=== PATIENT | female | born 1945 | race Caucasian/White ===

== ENCOUNTER → 2016-12-05 | Outpatient (CLI) | payer MEDICARE, OTHER | LOC: RAD 12:59 | PROVIDERS: ATTEND Pain Medicine Interventional Pain Medicine | DX: M25.552 Pain in left hip (principal); M16.0 Bilateral primary osteoarthritis of hip ==

== ENCOUNTER → 2017-01-04 | Outpatient (CLI) | payer MEDICARE, OTHER | LOC: RAD 11:43 | PROVIDERS: ATTEND Physician Assistant | DX: M25.552 Pain in left hip (principal) ==

== ENCOUNTER → 2017-09-16 | Outpatient (CLI) | payer MEDICARE, OTHER ==
[2017-09-16 13:55] LABS: APPEARANCE,URINE CLEAR; BILIRUBIN,URINE NEGATIVE (NEGATIVE); GLUCOSE, URINE NEGATIVE (NEGATIVE); KETONES,URINE NEGATIVE (NEGATIVE); LEUKOCYTE ESTERASE,URINE NEGATIVE (NEGATIVE); NITRITE,URINE NEGATIVE (NEGATIVE); PROTEIN,URINE NEGATIVE (NEGATIVE); URINE SPECIFIC GRAVITY 1.003; UROBILINOGEN,URINE NEGATIVE mg/dL (<2.0)
[2017-09-16 14:05] LABS: ABSOLUTE BASOPHILS # (AUTO) 0.1 10^3/uL (0.0-0.2); ABSOLUTE EOSINOPHILS # (AUTO) 0.4 10^3/uL (0.0-0.6); ABSOLUTE LYMPHOCYTES (AUTO) 2.6 10^3/uL (0.5-4.7); ABSOLUTE MONOCYTES (AUTO) 0.4 10^3/uL (0.1-1.4); ABSOLUTE NEUT (AUTO) 4.4 10^3/uL (1.7-8.2); BASOPHILS % (AUTO) 0.8 % (0-2); EOSINOPHILS % (AUTO) 4.8 % (0-6); HEMATOCRIT 43.5 % (36.0-47.0); HEMOGLOBIN 14.7 g/dL (12.0-15.5); HGB HCT DIFFERENCE 0.6; LYMPHOCYTES % (AUTO) 32.8 % (13-45); MEAN CORPUSCULAR HGB CONC 33.9 g/dL (32.0-36.0); MEAN CORPUSCULAR VOLUME 89 fl (80-97); MONOCYTES % (AUTO) 5.1 % (3-13); RED BLOOD COUNT 4.91 10^6/uL (3.72-5.28); RED CELL DISTRIBUTION WIDTH 14.1 % (11.5-14.0); SEGMENTED NEUTROPHILS % (AUTO) 56.5 % (42-78); WHITE BLOOD COUNT 7.8 10^3/uL (4.0-10.5)
[2017-09-16 14:07] LABS: PROTHROMBIN TIME 12.1 SEC (11.4-15.4)
[2017-09-16 14:08] LABS: PARTIAL THROMBOPLASTIN TIME 32.6 SEC (23.5-35.8)
== END ==
LOC: LAB 13:01
PROVIDERS: ATTEND Pain Medicine Interventional Pain Medicine
DX: Z79.01 Long term (current) use of anticoagulants (principal); G89.4 Chronic pain syndrome
CPT/HCPCS: 36415; 81001; 85025; 85610; 85730

== ENCOUNTER → 2017-10-30 | Outpatient (CLI) | payer MEDICARE, OTHER ==
--- NOTE | 2017-10-30 16:44 | RADIOLOGY REPORT (SQ) ---
EXAM DESCRIPTION: MRI LUMBAR SPINE COMBO COMPLETED DATE/TIME: 10/30/2017 3:56 pm REASON FOR STUDY: LUMBOSARCAL RADICULOPATHY (M54.17) M54.17 RADICULOPATHY, LUMBOSACRAL REGION COMPARISON: None. TECHNIQUE: Sagittal and Axial imaging includes T1, T1 post gadolinium, T2, STIR and gradient echo se quences. Coronal T2/HASTE imaging. CONTRAST TYPE AND DOSE: 15 mL Multihance. RENAL FUNCTION: GFR 50 LIMITATIONS: Susceptibility artifact. FINDINGS: VISUALIZED UPPER ABDOMEN: Limited evaluation. No acute or suspicious findings suggested. SEGMENTATION: No transitional anatomy. The lowest well-developed disc space is labeled L5-S1. ALIGNMENT: Slight anterolisthesis of L2 relative to L1. VERTEBRAE: Intact. No fractures. BONE MARROW: Normal. No marrow replacement or reactive changes. DISC SIGNAL: Desiccation multiple levels. POSTERIOR ELEMENTS: See individual levels below. HARDWARE: Posterior fusion L2-3, L3- 4 and L4-5. CORD AND CONUS: Normal in size and signal intensity. Conus at the appropriate level. SOFT TISSUES: No aortic aneurysm seen. No bulky retroperitoneal adenopathy or mass. No paraspinal mas s or fluid. L1-L2: Mild spinal stenosis due to disc osteophyte complex. Mild neural foraminal narrowing bilatera lly. L2-L3: Prior posterior decompression. The canal is widely patent. L3-L4: Posterior decompression. The canal is widely patent. L4-L5: Posterior decompression. The canal is widely patent. L5-S1: Disc bulge and facet arthropathy. Mild right neural foraminal narrowing. LOWER THORACIC: Incompletely imaged. No stenosis seen. SACRUM: Visualized upper sacrum intact. ENHANCEMENT: No abnormal enhancement. OTHER: No other significant findings. IMPRESSION: Mild spinal stenosis and malalignment L1-2 status post posterior decompression and fusio n at L2-3 through L4-5. TECHNICAL DOCUMENTATION: JOB ID: [id number] [employer]- All Rights Reserved
== END ==
LOC: RAD 14:15
PROVIDERS: ATTEND Pain Medicine Interventional Pain Medicine
DX: M54.17 Radiculopathy, lumbosacral region (principal)
CPT/HCPCS: 82565; 72158; A9577

== ENCOUNTER 2018-01-01 05:54 | Day surgery (SDC) | payer MEDICARE, OTHER ==
[~2018-01-01 05:54] MED LIST: DISPOSABLE IT PRN; MORPHINE SULFATE INJ PF 10 MG/10 ML SDV IT PRN; MORPHINE SULFATE IT PRN
[2018-01-01] MEDS ORDERED: MORPHINE SULFATE INJ PF 10 MG/10 ML SDV ONE (07:02)
--- NOTE | 2018-01-01 10:39 | RADIOLOGY REPORT (SQ) ---
EXAM DESCRIPTION: INJ L/S SPINE EPI/SUB COMPLETED DATE/TIME: 01/01/2018 8:37 am REASON FOR STUDY: G89.4 CHRONIC INTRACTABLE PAIN G89.4 CHRONIC PAIN SYNDROME COMPARISON: None. FLUOROSCOPY TIME: 0.2 minutes 2 images saved to PACS. TECHNIQUE: Intra-operative images acquired during surgical procedure to evaluate progress. NUMBER OF IMAGES: 2 LIMITATIONS: None. FINDINGS: Selected images from instrumentation in the lumbar spine. There is a spinal needle overly ing L2- 3 from a posterior approach. IMPRESSION: IMAGE(S) OBTAINED DURING PROCEDURE. COMMENT: Quality ID 145: Final reports for procedures using fluoroscopy that document radiation exp osure indices, or exposure time and number of fluorographic images (if radiation exposure indices are not available) Please consult full operative report of the attending physician for description of the procedure. TECHNICAL DOCUMENTATION: JOB ID: [id number] [employer]- All Rights Reserved
[2018-01-01 16:23] VITALS: BP 114/68
--- NOTE | 2018-01-02 15:03 | OPERATIVE REPORT E ---
Operative Report NAME: SOUTH HAMMER : 1945 AGE: 72Y DATE OF SURGERY: 01/01/2018 ROOM: 604 PRE-PROCEDURE DIAGNOSIS: Chronic intractable pain. POST-PROCEDURE DIAGNOSIS: Chronic intractable pain. PROCEDURE PERFORMED: Intrathecal morphine injection. PRIMARY PROCEDURALIST: TRISH ROBERTSON M.D. ASSISTANTS: None. ANESTHESIA: Local. SPECIMENS REMOVED: None. OPERATIVE FINDINGS: Successful intrathecal injection of morphine sulfate solution at 0.25 mg. COMPLICATIONS: None. ESTIMATED BLOOD LOSS: None. INDICATIONS: The patient is a 72-year-old female with chronic intractable pain. This is multifactorial in nature due to post-laminectomy pain syndrome of the lower back as well as complex regional pain syndrome of the right lower extremity and chronic osteoarthritic pain. The patient has been intolerant to oral opioids secondary to side effects, including substantial sweating, though they are very beneficial for pain. The patient failed a trial of spinal cord stimulation. The patient was decided to be a trial for intrathecal morphine to determine if intrathecal pump therapy may be reasonable methodology of treating pain. PROCEDURE PERFORMED: All risks and benefits of procedure were discussed in detail including but not limited to bleeding, bruising, infection, including meningitis, injury to nerves, arteries, veins, failure to ameliorate pain by reaction to intrathecal pain medication extended, potential for respiratory depression, paralysis, loss of bowel or bladder function, and even . The patient expressed understanding and agreed to proceed. The patient was taken to the cardiac catheterization lab and placed in prone position on the procedure table. The patient was prepped and draped in sterile fashion using chlorhexidine gluconate solution and a standard fenestrated drape. The L3-4 interspace was appreciated under AP fluoroscopy. The skin overlying the intended injection site was anesthetized with 1% lidocaine with 1:100,000 epinephrine using a 25-gauge needle. Subsequently, a 25-gauge Quincke spinal needle was advanced under intermittent AP and lateral fluoroscopic guidance to the midline intralaminar space between L3-4. After slight loss was felt, the Stylette was removed. Aspiration was positive for CSF. Total of 0.25 mg of morphine sulfate was injected into the approximately 1 mL of cerebrospinal fluid that was withdrawn. This was reinjected through the Marta needle without difficulty. The needle was removed. The skin cleansed and bandages applied. The patient was accompanied to the recovery unit in stable condition. She will remain supine and laying flat for the next hour after which she will be monitored for the next 8 hours with continuous pulse oximetry and encouraged to ambulate to see side effects of medication and any improvement in pain. DICTATING PHYSICIAN: TRISH ROBERTSON M.D. [id number] PHY#: [id number] ID: [id number] JOB#: [id number] ACCT: [id number] cc:TRISH ROBERTSON M.D. >
== END 2018-01-01 18:21 | disposition home or self-care (01) ==
LOC: CCL 05:54 → ICU 18:18 → CCL 18:21
PROVIDERS: ATTEND Pain Medicine Interventional Pain Medicine
PROC: 3E0R3NZ Introduction of Analgesics, Hypnotics, Sedatives into Spinal Canal, Percutaneous Approach (ICD-10-PCS; principal; 2018-01-01)
DX: G89.4 Chronic pain syndrome (principal); I10 Essential (primary) hypertension; E07.9 Disorder of thyroid, unspecified; M54.17 Radiculopathy, lumbosacral region; M05.59 Rheumatoid polyneuropathy with rheumatoid arthritis of multiple sites; F45.42 Pain disorder with related psychological factors; F32.9 Major depressive disorder, single episode, unspecified; M60.89 Other myositis, multiple sites; M25.571 Pain in right ankle and joints of right foot; M25.572 Pain in left ankle and joints of left foot; G47.01 Insomnia due to medical condition; M25.551 Pain in right hip; F32.89 Other specified depressive episodes; M25.552 Pain in left hip; Z79.899 Other long term (current) drug therapy; Z79.891 Long term (current) use of opiate analgesic
CPT/HCPCS: 62322; 77001; J2274; J3490

== ENCOUNTER → 2018-01-10 | Outpatient (CLI) | payer MEDICARE, OTHER ==
[2018-01-10 14:01] LABS: ABSOLUTE BASOPHILS # (AUTO) 0.1 10^3/uL (0.0-0.2); ABSOLUTE EOSINOPHILS # (AUTO) 0.2 10^3/uL (0.0-0.6); ABSOLUTE LYMPHOCYTES (AUTO) 2.7 10^3/uL (0.5-4.7); ABSOLUTE MONOCYTES (AUTO) 0.5 10^3/uL (0.1-1.4); ABSOLUTE NEUT (AUTO) 6.1 10^3/uL (1.7-8.2); BASOPHILS % (AUTO) 0.9 % (0-2); EOSINOPHILS % (AUTO) 1.6 % (0-6); HEMATOCRIT 41.3 % (36.0-47.0); HEMOGLOBIN 14.4 g/dL (12.0-15.5); LYMPHOCYTES % (AUTO) 27.9 % (13-45); MEAN CORPUSCULAR HEMOGLOBIN 30.7 pg (27.0-33.4); MEAN CORPUSCULAR HGB CONC 34.8 g/dL (32.0-36.0); MEAN CORPUSCULAR VOLUME 88 fl (80-97); MONOCYTES % (AUTO) 5.2 % (3-13); PLATELET COUNT 225 10^3/uL (150-450); RED BLOOD COUNT 4.69 10^6/uL (3.72-5.28); RED CELL DISTRIBUTION WIDTH 14.6 % (11.5-14.0); SEGMENTED NEUTROPHILS % (AUTO) 64.4 % (42-78); TOTAL CELLS COUNTED % (AUTO) 100 %; WHITE BLOOD COUNT 9.5 10^3/uL (4.0-10.5)
[2018-01-10 14:11] LABS: APPEARANCE,URINE CLEAR; BILIRUBIN,URINE NEGATIVE (NEGATIVE); COLOR,URINE STRAW; GLUCOSE, URINE NEGATIVE (NEGATIVE); KETONES,URINE NEGATIVE (NEGATIVE); LEUKOCYTE ESTERASE,URINE NEGATIVE (NEGATIVE); NITRITE,URINE NEGATIVE (NEGATIVE); PROTEIN,URINE NEGATIVE (NEGATIVE); URINE SPECIFIC GRAVITY 1.004; UROBILINOGEN,URINE NEGATIVE mg/dL (<2.0)
[2018-01-10 14:12] LABS: INTERNATIONAL RATION (INR) 0.82
[2018-01-10 14:13] LABS: PARTIAL THROMBOPLASTIN TIME 27.5 SEC (23.5-35.8)
== END ==
LOC: LAB 13:35
PROVIDERS: ATTEND Pain Medicine Interventional Pain Medicine
DX: Z01.812 Encounter for preprocedural laboratory examination (principal); R23.3 Spontaneous ecchymoses
CPT/HCPCS: 36415; 81001; 85025; 85610; 85730

== ENCOUNTER 2018-01-14 10:21 | Day surgery (SDC) | payer MEDICARE, OTHER ==
--- NOTE | 2018-01-13 13:48 | EKG REPORT ---
SEVERITY:- BORDERLINE ECG - SINUS RHYTHM LEFT AXIS DEVIATION BORDERLINE R WAVE PROGRESSION, ANTERIOR LEADS : Confirmed by: Isaias Saunders MD 13-Jan-2018 13:47:30
[~2018-01-14 10:21] MED LIST changes: +CEFAZOLIN 1 GM/D5W RTU 1 GM/50 ML RTUPB IV PRN; -DISPOSABLE IT PRN; +LACTATED RINGERS 1000 ML IV PRN; +LIDOCAINE 0.5% INJ-PF (5 MG/ML) 50 ML SDV SUBCUT PRN; -MORPHINE SULFATE INJ PF 10 MG/10 ML SDV IT PRN; -MORPHINE SULFATE IT PRN
[2018-01-14] MEDS ORDERED: LIDOCAINE 1% INJ-PF (10 MG/ML) 30 ML SDV ONE ×2 (11:28→13:05)
[2018-01-14] MEDS ORDERED: SODIUM BICARBONATE 8.4% INJ 50 MEQ/50 ML DISP.SYRIN ONE (11:28)
[2018-01-14] MEDS ORDERED: BUPIVACAINE HCL 0.5%-EPI 1:200000 INJ/PF 30 ML VIAL ONE ×2 (11:28→13:05)
[2018-01-14] MEDS ORDERED: MIDAZOLAM 2 MG/2 ML INJ ONE (12:17)
[2018-01-14] MEDS ORDERED: ONDANSETRON HCL INJ/PF 4 MG/2 ML SDV ONE (12:17)
[2018-01-14] MEDS ORDERED: FENTANYL CITRATE INJ/PF 100 MCG/2 ML AMPUL ONE (12:17)
[2018-01-14] MEDS ORDERED: PROPOFOL INJ 200 MG/20 ML VIAL IV ONE (12:17)
[2018-01-14] MEDS ORDERED: MEPERIDINE HCL/PF INJ 25 MG/1 ML DISP.SYRIN IV PRN (13:03)
[2018-01-14] MEDS ORDERED: DIPHENHYDRAMINE HCL 50 MG/ML VIAL IV PRN (13:03)
[2018-01-14] MEDS ORDERED: MORPHINE SULFATE 10 MG/ML INJ IV PRN (13:03)
[2018-01-14] MEDS ORDERED: PROMETHAZINE HCL INJ 25 MG/1 ML VIAL IV PRN (13:03)
[2018-01-14] MEDS ORDERED: FENTANYL CITRATE INJ/PF 100 MCG/2 ML AMPUL IV PRN ×3 (13:03)
[2018-01-14] MEDS ORDERED: ACETAMINOPHEN 325 MG TABLET PO PRN (15:42)
--- NOTE | 2018-01-14 16:19 | RADIOLOGY REPORT (SQ) ---
EXAM DESCRIPTION: THORACOLUMBAR SPINE AP/LAT; GUIDANCE FLUOROSCOPIC; NO CHG FLUORO COMPLETED DATE/TIME: 01/14/2018 3:05 pm; 01/01/2018 12:33 pm REASON FOR STUDY: MORPHINE PUMP PLMCT ASST WITH FLUORO IN OR; CHRONIC PAIN SYNDROME G89.4 CHRONIC P AIN SYNDROME COMPARISON: Lumbar spine image guided procedure 01/01/2018 FLUOROSCOPY TIME: 2 minutes 21 images images saved to PACS. TECHNIQUE: Intra-operative images acquired during surgical procedure to evaluate progress. NUMBER OF IMAGES: 21 images LIMITATIONS: None. FINDINGS: Intra procedural imaging and fluoro. Please see the operative report for further details. IMPRESSION: Intra procedural imaging and fluoro COMMENT: Quality ID 145: Final reports for procedures using fluoroscopy that document radiation exp osure indices, or exposure time and number of fluorographic images (if radiation exposure indices are not available) Please consult full operative report of the attending physician for description of the procedure. TECHNICAL DOCUMENTATION: JOB ID: [id number] [employer]- All Rights Reserved Reading location - IP/workstation name: [email or web address]
--- NOTE | 2018-01-14 16:19 | RADIOLOGY REPORT (SQ) ---
EXAM DESCRIPTION: THORACOLUMBAR SPINE AP/LAT; GUIDANCE FLUOROSCOPIC; NO CHG FLUORO COMPLETED DATE/TIME: 01/14/2018 3:05 pm; 01/01/2018 12:33 pm REASON FOR STUDY: MORPHINE PUMP PLMCT ASST WITH FLUORO IN OR; CHRONIC PAIN SYNDROME G89.4 CHRONIC P AIN SYNDROME COMPARISON: Lumbar spine image guided procedure 01/01/2018 FLUOROSCOPY TIME: 2 minutes 21 images images saved to PACS. TECHNIQUE: Intra-operative images acquired during surgical procedure to evaluate progress. NUMBER OF IMAGES: 21 images LIMITATIONS: None. FINDINGS: Intra procedural imaging and fluoro. Please see the operative report for further details. IMPRESSION: Intra procedural imaging and fluoro COMMENT: Quality ID 145: Final reports for procedures using fluoroscopy that document radiation exp osure indices, or exposure time and number of fluorographic images (if radiation exposure indices are not available) Please consult full operative report of the attending physician for description of the procedure. TECHNICAL DOCUMENTATION: JOB ID: [id number] [employer]- All Rights Reserved Reading location - IP/workstation name: [email or web address]
[2018-01-14] MEDS: HYDROMORPHONE HCL 2 MG TABLET PO PRN (17:15)
[2018-01-14] MEDS: DIPHENHYDRAMINE HCL 25 MG CAPSULE PO PRN ×3 (19:34→21:52)
[2018-01-14] MEDS: PROMETHAZINE HCL INJ 25 MG/1 ML VIAL IV PRN ×2 (19:35→20:02)
[2018-01-14] MEDS: CEFAZOLIN 1 GM/D5W RTU 1 GM/50 ML RTUPB IV SCH (21:51)
[2018-01-14] MEDS: ALPRAZOLAM 0.5 MG TABLET PO SCH (21:53)
[2018-01-14] MEDS: ZOLPIDEM TARTRATE 5 MG TABLET PO SCH (21:53)
[2018-01-14] MEDS ORDERED: DIPHENHYDRAMINE HCL 50 MG/ML VIAL ONE (22:56)
[2018-01-14] MEDS ORDERED: DIPHENHYDRAMINE HCL 50 MG/ML VIAL INJ ONE (23:15)
[2018-01-15] MEDS: HYDROMORPHONE HCL 2 MG TABLET PO PRN ×2 (01:41→09:38)
[2018-01-15] MEDS: PROMETHAZINE HCL INJ 25 MG/1 ML VIAL IV PRN ×2 (02:04→06:48)
[2018-01-15] MEDS: ONDANSETRON HCL INJ/PF 4 MG/2 ML SDV IV PRN ×2 (04:22→14:37)
[2018-01-15] MEDS: CEFAZOLIN 1 GM/D5W RTU 1 GM/50 ML RTUPB IV SCH ×2 (06:43→13:00)
[2018-01-15] MEDS: ALPRAZOLAM 0.5 MG TABLET PO SCH ×3 (06:44→21:48)
[2018-01-15] MEDS: DIPHENHYDRAMINE HCL 25 MG CAPSULE PO PRN (09:42)
[2018-01-15] MEDS ORDERED: ONDANSETRON HCL INJ/PF 4 MG/2 ML SDV IV ONE (19:00)
[2018-01-15] MEDS: ZOLPIDEM TARTRATE 5 MG TABLET PO SCH (21:48)
[2018-01-15] MEDS ORDERED: HYDROXYZINE PAMOATE 50 MG CAPSULE PO SCH (22:00)
[2018-01-16] MEDS: DIPHENHYDRAMINE HCL 25 MG CAPSULE PO PRN (02:16)
[2018-01-16] MEDS: ONDANSETRON HCL INJ/PF 4 MG/2 ML SDV IV PRN (02:16)
[2018-01-16] MEDS: ALPRAZOLAM 0.5 MG TABLET PO SCH (06:40)
[2018-01-16 10:04] VITALS: BP 158/91
--- NOTE | 2018-01-16 14:23 | OPERATIVE REPORT E ---
Operative Report NAME: SOUTH HAMMER : 1945 AGE: 72Y DATE OF SURGERY: 01/14/2018 ROOM: 423 PREOPERATIVE DIAGNOSES: 1. Chronic intractable pain. 2. Post-laminectomy pain syndrome. 3. Complex regional pain syndrome of the lower extremity. POSTOPERATIVE DIAGNOSES: 1. Chronic intractable pain. 2. Post-laminectomy pain syndrome. 3. Complex regional pain syndrome of the lower extremity. PROCEDURES PERFORMED: 1. Placement of Medtronic intrathecal infusion pump. 2. Tunneling of infusion pump catheter. 3. Anchoring of intrathecal catheter to implantable SynchroMed infusion pump. PRIMARY SURGEON: TRISH ROBERTSON M.D. MAINTENANCE PLUMBER: MERVAT DOOLEY M.D. ESTIMATED BLOOD LOSS: 10 mL. ANESTHESIA: Local with sedation. PERIOPERATIVE ANTIBIOTICS: Ancef 1 g given prior to incision. IV FLUIDS: 1 L balanced crystalloid solution. OPERATIVE FINDINGS: Intrathecal catheter placed at the top of the T11 vertebral body confirmed with fluoroscopy. COMPLICATIONS: None. INDICATIONS: The patient is a 72-year-old female with chronic intractable pain due to multiple pain generators, primarily severe neuropathic injury of the right lower extremity, but also pain associated with lumbar fusion. The patient has been through extensive trials of different conservative management, including physical therapy, injection therapies, spinal cord stimulator trial, as well as multiple different medication trials. The patient has excellent relief with use of opioid pain medications and generalized pain; however, this has been limited by medication-based side effects. The patient underwent trial of intrathecal morphine injection approximately 2 weeks ago with excellent relief in pain and minimal side effects. As such, the decision was made to proceed with intrathecal pump implantation. All risks and benefits were discussed with the patient at length including but not limited to bleeding, bruising, infection, injury to nerves, arteries, veins, paralysis, loss of bowel or bladder function, potentially , need for revision surgery, possibility of catheter migration, and posterior puncture headache. The patient expressed understanding and agreed to proceed. PROCEDURAL DETAIL: The patient was accompanied to the operative suite where she was placed in the right lateral decubitus position. All pressure points were checked and padded. Standard ASA lines and monitors were applied. Sedation was induced. The patient was given perioperative antibiotics within 30 minutes of incision. The patient was prepped and draped in sterile fashion with a wide prep extending from the lower back all the way around to the abdomen where she had been marked for planned intrathecal pump implantation on the left abdomen. She was draped using a universal Ioban drape and C-arm was draped into the sterile field. The planned entry site into the spinal canal was marked at L3-4 and incision was made through previous midline surgical scarring after skin anesthesia with 1% buffered lidocaine. Deeper tissues were infiltrated with 0.25% bupivacaine with 1:100,000 epinephrine prior to incision. Incision was made using a 15-blade scalpel in the midline of the spine. Prior to the abdominal incision, the SynchroMed Medtronic pump was repaired on the back table in sterile fashion with 40 mL of morphine sulfate 1 mg/mL utilized to fill the pump reservoir. Notably, the pump was primed at this point. Blunt and electrocautery dissection were utilized to expose the prevertebral fascia. At this point, a Tuohy needle provided by the Medtronic kit was advanced under intermittent AP and lateral fluoroscopic guidance into the L3-4 interspace and then further advanced forward to create a dural puncture at the L3-4 level. This was notably confirmed to be in the midline. The catheter provided by the Medtronic kit was advanced with stylette in easily through the Tuohy needle. This was advanced to the top of the T11 vertebral body with ease. Upon placement, notably brisk backflow of cerebral spinal fluid was noted through the catheter. After confirmation with AP and lateral fluoroscopy, the Tuohy needle was removed over the catheter and the stylette was then carefully removed from the catheter. A pursestring suture was placed using 0 Mersilene around the catheter site and was tied tight at this juncture of removing the Tuohy needle. The anchoring device provided by the Medtronic kit was advanced over the catheter to the fascia and 2 sutures were placed around the wings of the anchor to anchor the catheter in place. At this point of time, the very tip of the catheter was clamped at the top of the surgical field. An additional 0 Mersilene suture was placed around the caudad portion of the anchor as well. There was no appreciated leak of CSF into the tissues and adequate hemostasis was confirmed. Attention was then turned to the left lower abdomen. A previously planned site for pump placement had been marked. The skin was anesthetized using 1% buffered lidocaine and deeper tissues infiltrated with 0.25% bupivacaine with 1:100,000 epinephrine. Incision was made using an 11-blade scalpel in the abdomen in transverse fashion. Deep and electrocautery dissection were utilized to ensure adequate hemostasis and creation of a pocket for a 40 mL SynchroMed Medtronic pump. Once this was appropriately sized, tunneling was then performed after anesthesia in the deep tissues with a 25-gauge 3.5 inch spinal needle. Tunneling proceeded from the midline of the back to a small puncture site at the patient's left mid axillary line. The tunneling device was then reinserted and tunneled from the puncture site to the left abdomen site where the pump was planned to be placed. The catheter was pulled through with appropriate strain relief loop in the lower back. Approximately 1 cm of the catheter was cut and then attached to the extension device. The extension device, which is sutureless, was placed easily onto the intrathecal pump on the field. Notably, excellent flow of CSF was noted prior to this placement. The pump was anchored in place using 2-0 Mersilene ties at the floor of the pocket. A strain relief loop of catheter was also placed behind the pump. At this point, all incisions were irrigated copiously with a dilute Betadine solution. Closure ensued with interrupted 3-0 Vicryl suture. The skin was further closed using nava. Notably, only nava were used in the mid axillary small incision. The patient's incisions were infiltrated with 0.25% bupivacaine with 1:100,000 epinephrine. Subsequently, the skin was cleansed and dressings were applied. The Medtronic architectural representative in the room programmed the patient's device to infuse at 0.25 mg daily of intrathecal morphine. She was also given a bolus dose of 0.25 mg. The patient was accompanied by Anesthesia to the recovery suite where she will be monitored and then transferred to an inpatient bed where she will be monitored using continuous pulse oximetry over the next 24 hours. The patient tolerated the procedure well without complication. DICTATING PHYSICIAN: TRISH ROBERTSON M.D. [id number] PHY#: [id number] ID: [id number] JOB#: [id number] ACCT: [id number] cc:TRISH ROBERTSON M.D. >
--- NOTE | 2018-01-17 19:53 | DISCHARGE SUMMARY E ---
Discharge Summary NAME: SOUTH HAMMER : 1945 AGE: 72Y ADMITTED: 01/14/2018 DISCHARGED: 01/16/2018 ATTENDING PHYSICIAN: Trish Vance MD CONDITION ON DISCHARGE: Good. FINAL DIAGNOSES: 1. Chronic pain syndrome. 2. Complex regional pain syndrome. PROCEDURES: Implantation of intrathecal catheter and morphine pump performed 01/14/2018. No complications noted. HISTORY OF PRESENT ILLNESS: As a brief review, the patient is a 72-year-old female with chronic pain syndrome, post laminectomy pain, as well as lower extremity neuralgia, consistent with CRPS. The patient was admitted for monitoring following implantation of intrathecal morphine pump, after multiple failed interventions for pain management. HOSPITAL COURSE: The patient was stable postoperatively. She did experience substantial itching after morphine bolus on postoperative day 0 and into postoperative day 1, interfering with sleeping and activity. However, this resolved by the evening of postop day 1, with treatment with Benadryl and ondansetron. The patient was up and walking with physical therapy postoperative day 1, and deemed stable and safe to go home. As such, she was discharged postop day 2. DISCHARGE MEDICATIONS: Please see MAR. No new medications added. DISCHARGE INSTRUCTIONS: The patient was instructed to resume normal diet. She was advised to avoid lifting greater than 10 pounds, bending or twisting. She was discharged to home. She is advised to call for any concerns, including bleeding at the incision sites, fever, swelling, worsening pain or any other concerning symptoms. FOLLOWUP APPOINTMENT: The patient will be seen in followup on 01/17/2018 as an outpatient. DICTATING PHYSICIAN: TRISH VANCE M.D. [id number] PHY#: [id number] ID: [id number] JOB#: [id number] ACCT: [id number] cc:TRISH VANCE M.D. >
== END 2018-01-16 10:42 | disposition home or self-care (01) ==
LOC: UNDOADMIN 10:21 → INOR 10:21 → OROUT 10:21 → EDSTATUS 13:00 → 4W 16:41 → INOR 16:41 → 4W 16:41 → UNDODISIN 01-16 10:42 → OROUT 01-16 10:42
PROVIDERS: ATTEND Pain Medicine Interventional Pain Medicine
PROC: 0JH80VZ Insertion of Infusion Pump into Abdomen Subcutaneous Tissue and Fascia, Open Approach (ICD-10-PCS; principal; 2018-01-14 13:00)
DX: G89.4 Chronic pain syndrome (principal); F17.210 Nicotine dependence, cigarettes, uncomplicated; E07.9 Disorder of thyroid, unspecified; M96.1 Postlaminectomy syndrome, not elsewhere classified; I10 Essential (primary) hypertension; K75.9 Inflammatory liver disease, unspecified; M54.17 Radiculopathy, lumbosacral region; M05.59 Rheumatoid polyneuropathy with rheumatoid arthritis of multiple sites; F45.42 Pain disorder with related psychological factors; F32.9 Major depressive disorder, single episode, unspecified; M60.89 Other myositis, multiple sites; G47.01 Insomnia due to medical condition; M25.571 Pain in right ankle and joints of right foot; M25.572 Pain in left ankle and joints of left foot; M25.551 Pain in right hip; M25.552 Pain in left hip; Z79.899 Other long term (current) drug therapy; Z79.891 Long term (current) use of opiate analgesic
CPT/HCPCS: 93005; 36415; 84132; 72080; 93010; 97530; 97163; 62362; C1772; A9270 ×11; J2250; J3490 ×3; J0690 ×2; J1200; J3010; J2550 ×2; J2405 ×3; J2704; G8978; G8979; 00300

== ENCOUNTER → 2018-02-19 | Outpatient (CLI) | payer MEDICARE, OTHER ==
--- NOTE | 2018-02-19 11:28 | RADIOLOGY REPORT (SQ) ---
EXAM DESCRIPTION: VENOUS UNILATERAL LOWER COMPLETED DATE/TIME: 02/19/2018 10:23 am REASON FOR STUDY: RLE PAIN, SWELLING R22.41 LOCALIZED SWELLING, MASS AND LUMP, RIGHT LOWER LIMB COMPARISON: None. TECHNIQUE: Dynamic and static huerta scale and color images acquired of the right leg venous system. S elected spectral images acquired with additional compression and augmentation maneuvers. The contrala teral common femoral vein and saphenofemoral junction were also imaged. Images stored on PACS. LIMITATIONS: None. FINDINGS: RIGHT COMMON FEMORAL: Normal phasicity, compression and augmentation. No visualized echogenic material on g ray scale. No defects on color images. FEMORAL: Normal compression and augmentation. No visualized echogenic material on huerta scale. No defe cts on color images. POPLITEAL: Normal compression, augmentation. No visualized echogenic material on uherta scale. No defec ts on color images. CALF VESSELS: Normal compression, augmentation. No visualized echogenic material on huerta scale. No de fects on color images. GSV and SSV: Normal compression, augmentation. No visualized echogenic material on huerta scale. No def ects on color images. ANY DEEP VENOUS INSUFFICIENCY: No. ANY EVIDENCE OF POPLITEAL CYST: No. OTHER: No other significant finding. LEFT COMMON FEMORAL VEIN AND SAPHENOFEMORAL JUNCTION: Normal phasicity, compression and augmentation. No visualized echogenic material on huerta scale. No de fects on color images. IMPRESSION: NO EVIDENCE OF DVT OR SVT IN THE RIGHT LEG. TECHNICAL DOCUMENTATION: JOB ID: [id number] [employer]- All Rights Reserved Reading location - IP/workstation name: [email or web address]
== END ==
LOC: SP 09:23
PROVIDERS: ATTEND Pain Medicine Interventional Pain Medicine
DX: R22.41 Localized swelling, mass and lump, right lower limb (principal)
CPT/HCPCS: 93971

== ENCOUNTER → 2018-03-03 | Outpatient (CLI) | payer MEDICARE, OTHER ==
[2018-03-03 14:26] LABS: ABSOLUTE EOSINOPHILS # (AUTO) 0.3 10^3/uL (0.0-0.6); ABSOLUTE LYMPHOCYTES (AUTO) 2.8 10^3/uL (0.5-4.7); ABSOLUTE MONOCYTES (AUTO) 0.5 10^3/uL (0.1-1.4); ABSOLUTE NEUT (AUTO) 5.3 10^3/uL (1.7-8.2); BASOPHILS % (AUTO) 0.5 % (0-2); EOSINOPHILS % (AUTO) 3.2 % (0-6); HEMATOCRIT 42.5 % (36.0-47.0); HEMOGLOBIN 14.5 g/dL (12.0-15.5); LYMPHOCYTES % (AUTO) 31.1 % (13-45); MEAN CORPUSCULAR HEMOGLOBIN 29.8 pg (27.0-33.4); MEAN CORPUSCULAR HGB CONC 34.1 g/dL (32.0-36.0); MEAN CORPUSCULAR VOLUME 88 fl (80-97); MONOCYTES % (AUTO) 5.4 % (3-13); PLATELET COUNT 244 10^3/uL (150-450); RED BLOOD COUNT 4.85 10^6/uL (3.72-5.28); RED CELL DISTRIBUTION WIDTH 13.9 % (11.5-14.0); SEGMENTED NEUTROPHILS % (AUTO) 59.8 % (42-78); TOTAL CELLS COUNTED % (AUTO) 100 %; WHITE BLOOD COUNT 8.9 10^3/uL (4.0-10.5)
[2018-03-03 14:46] LABS: APPEARANCE,URINE CLEAR; BILIRUBIN,URINE NEGATIVE (NEGATIVE); COLOR,URINE YELLOW; GLUCOSE, URINE NEGATIVE (NEGATIVE); KETONES,URINE NEGATIVE (NEGATIVE); LEUKOCYTE ESTERASE,URINE NEGATIVE (NEGATIVE); NITRITE,URINE NEGATIVE (NEGATIVE); PROTEIN,URINE NEGATIVE (NEGATIVE); URINE SPECIFIC GRAVITY 1.006; UROBILINOGEN,URINE NEGATIVE mg/dL (<2.0)
[2018-03-03 15:01] LABS: ERYTHROCYTE SEDIMENTATION RATE 48 mm/hr (0-30)
== END ==
LOC: LAB 14:05
PROVIDERS: ATTEND Pain Medicine Interventional Pain Medicine
DX: M06.89 Other specified rheumatoid arthritis, multiple sites (principal); M33.20 Polymyositis, organ involvement unspecified; R30.0 Dysuria
CPT/HCPCS: 36415; 81001; 85025; 85652; 86140

== ENCOUNTER 2018-06-06 22:45 | Emergency (ER) | payer MEDICARE, OTHER ==
--- NOTE | 2018-06-06 23:10 | ER Document Report ---
ED General - General Mode of Arrival: Ambulatory Information source: Patient TRAVEL OUTSIDE OF THE [place] IN LAST 30 DAYS: No <COREY GONSALES - Last Filed: 06/06/18 23:49> <CLARISSA STALLINGS - Last Filed: 06/07/18 03:32> - General Chief Complaint: Shortness Of Breath Stated Complaint: SHORTNESS OF BREATH Time Seen by Provider: 06/06/18 22:54 Notes: 72 year old female that presents today with complaints of bilateral leg/hand swelling, shortness of breath, and associated nausea for the last 3 days. Patient states that she has had mild swelling since having a "pain pump" which administers Dilaudid which was placed in December but over the last 3 days the swelling has gotten much worse she reports. Patient states that she had clonidine added to her medicine regimen 3 weeks ago but that is the only medicine change. Patient states she has had shortness of breath and dyspnea on exertion. Patient is a smoker. Patient also mentions she has had associated nausea. (COREY GONSALES) - Related Data Allergies/Adverse Reactions: acetaminophen [From Percocet] Allergy (Verified 01/14/18 11:13) codeine [Codeine] Allergy (Verified 01/14/18 11:13) Nausea dexamethasone [Dexamethasone] Allergy (Verified 01/14/18 11:13) "crazy" indomethacin [From Indocin] Allergy (Verified 01/14/18 11:13) ecchymosis indomethacin sodium [From Indocin] Allergy (Verified 01/14/18 11:13) methadone [Methadone] Allergy (Verified 01/14/18 11:13) "crazy" oxycodone HCl [From Percocet] Allergy (Verified 01/14/18 11:13) Nausea pregabalin [From Lyrica] Allergy (Verified 01/14/18 11:13) dizzy prochlorperazine edisylate [From Compazine] Allergy (Verified 01/14/18 11:13) muscle spasms prochlorperazine maleate [From Compazine] Allergy (Verified 01/14/18 11:13) muscle spasms Sulfa (Sulfonamide Antibiotics) Allergy (Verified 01/14/18 11:13) Nausea doxycycline Adverse Reaction (Verified 01/14/18 11:13) Nausea Past Medical History - General Information source: Patient - Social History Smoking Status: Current Every Day Smoker Cigarette use (# per day): Yes Frequency of alcohol use: None Drug Abuse: None Lives with: Spouse/Significant other Family History: Reviewed & Not Pertinent Endocrine Medical History: Reports: Hx Hypothyroidism GI Medical History: Reports: Hx Hiatal Hernia Musculoskeletal Medical History: Reports Hx Arthritis - RIGHT LEG, Reports Hx Fibromyalgia Past Surgical History: Reports: Hx Appendectomy, Hx Cholecystectomy, Hx Herniorrhaphy, Hx Hysterectomy, Hx Neurologic Surgery - Lumbar fusion, Hx Orthopedic Surgery - Left hip cyst removed, Right knee replacement, Hx Tonsillectomy, Hx Vascular Surgery - Right lower extremity fasciotomy because of post surgical complications - Immunizations Hx Diphtheria, Pertussis, Tetanus Vaccination: Yes <COREY GONSALES - Last Filed: 06/06/18 23:49> Review of Systems - Review of Systems Constitutional: No symptoms reported EENT: No symptoms reported Cardiovascular: No symptoms reported Respiratory: See HPI, Short of breath, Wheezing. denies: Cough Gastrointestinal: See HPI, Nausea Genitourinary: No symptoms reported Female Genitourinary: No symptoms reported Musculoskeletal: See HPI, Leg swelling Skin: No symptoms reported Hematologic/Lymphatic: No symptoms reported Neurological/Psychological: No symptoms reported -: Yes All other systems reviewed and negative <COREY GONSALES - Last Filed: 06/06/18 23:49> Physical Exam <COREY GONSALES - Last Filed: 06/06/18 23:49> <CLARISSA STALLINGS - Last Filed: 06/07/18 03:32> - Vital signs Vitals: Temp Pulse Resp BP Pulse Ox 98.3 F 74 24 H 127/68 H 91 L 06/06/18 22:46 06/06/18 22:46 06/06/18 22:46 06/06/18 22:46 06/06/18 22:46 - Notes Notes: Physical Exam: General: Alert. Appears age appropriate. HEENT: Normocephalic. Atraumatic. PERRL. Extraocular movements intact. Oropharynx clear. Neck: Supple. Non-tender. Respiratory: No respiratory distress. Coarse breath sounds and faint wheezing bilaterally. Saturating at 91% on room air, up to 97 on 2L nasal cannula. Cardiovascular: Regular rate and rhythm. Abdominal: Normal Inspection. Non-tender. No distension. Normal Bowel Sounds. Back: Non-tender. No deformity or step off. Extremities: Moves all four extremities. Upper extremities: Normal inspection. Normal ROM. Lower extremities: 2+ pitting edema on the left, 1+ pitting edema on the right. Healed scars over left knee, left medial leg/thigh consistent with surgical history. Normal ROM. Neurological: Normal cognition. AAOx4. Normal speech. Psychological: Normal affect. Normal Mood. Skin: Warm. Dry. Normal color. (COREY GONSALES) Course - Laboratory Result Diagrams: 06/06/18 23:15 06/06/18 23:15 <COREY GONSALES - Last Filed: 06/06/18 23:49> - Laboratory Result Diagrams: 06/06/18 23:15 06/06/18 23:15 - Diagnostic Test Radiology reviewed: Image reviewed, Reports reviewed - Chest x-ray does not show any acute process, no infiltrates, no pulmonary vascular congestion. CTA chest does not show any abnormalities, specifically no pulmonary emboli. - EKG Interpretation by Me EKG shows normal: Sinus rhythm, [place], Intervals, QRS Complexes, ST-T Waves Rate: Normal - 69 Rhythm: NSR [place]/QRS: Left axis deviation, LAHB/LAFB When compared to previous EKG there are: No significant change <CLARISSA STALLINGS - Last Filed: 06/07/18 03:32> - Re-evaluation Re-evalutation: 06/07/18 00:19 The patient was nauseous on the way and he got IV Zofran from the EMS. She continues to be nauseous and was given Zofran ODT's which she promptly vomited. On gaining further history, it turns out she takes Reglan twice daily on a regular basis and takes Phenergan frequently. Given this development, I am not so concerned about her nausea and vomiting that she is having. She also expresses that she gets steroid psychosis with any and all steroids which would suggest that she has been treated in the past for COPD despite the history she is providing us. 06/07/18 03:13 The patient did notice that her breathing felt better after the DuoNeb treatment she received. On auscultation I can hear air movement better and more wheezes when I have her take a breath and cough. The patient reports she has an inhaler at home with a red top but she does not know the name of the medication, her family states she really does not ever use it. She keeps asking about swelling of her legs, and as it turns out when she is off her feet the swelling goes away when she is up and walking about throughout the day the swelling returns. She cannot tolerate compression stockings on the right leg due to the prior nerve damage from the procedures that were done when she had her total knee and vascular injury.\\ CTA chest does not show pulmonary emboli. I suspect her shortness of breath is all due to her COPD and unfortunately she cannot take steroids. I have suggested that she see her primary care provider to discuss medications such as Symbicort, Advair, Brio, Spiriva or similar type medicines to control her COPD. (CLARISSA STALLINGS) - Vital Signs Vital signs: Temp Pulse Resp BP Pulse Ox 98.3 F 74 16 121/70 93 06/06/18 22:46 06/06/18 22:46 06/07/18 03:01 06/07/18 03:01 06/07/18 03:01 - Laboratory Laboratory results interpreted by me: 06/06/18 06/06/18 06/06/18 23:15 23:15 23:15 RDW 14.3 H D-Dimer 1.26 H Est GFR (Non-Af Amer) 56 L Magnesium 1.5 L AST 40 H Creatine Kinase 143 H Discharge <COREY GONSALES - Last Filed: 06/06/18 23:49> <CLARISSA STALLINGS - Last Filed: 06/07/18 03:32> - Discharge Clinical Impression: Chronic nausea COPD (chronic obstructive pulmonary disease) Qualifiers: COPD type: unspecified COPD Qualified Code(s): J44.9 - Chronic obstructive pulmonary disease, unspecified Dyspnea Qualifiers: Dyspnea type: shortness of breath Qualified Code(s): R06.02 - Shortness of breath Condition: Stable Disposition: HOME, SELF-CARE Additional Instructions: Your shortness of breath seems to be due to your COPD. Use the albuterol inhaler your given to help with that shortness of breath. Take 2 puffs from the inhaler every 4-6 hours for shortness of breath as needed. Stopping smoking will help reduce the progression and worsening of your COPD. Your lower extremity swelling is called peripheral edema. By history yours seems to be what we called dependent edema. That means that the swelling will occur when your feet are down below your heart for any length of time, and the swelling will improve when you have your feet elevated above your heart. Wearing compression hose or stockings is the best way to reduce swelling when you are up walking about. You should follow-up with your primary care provider this week to discuss management of your COPD and shortness of breath with long acting medications such as Advair, Symbicort, Brio, and Spiriva. RETURN TO THE EMERGENCY ROOM IF ANY NEW OR WORSENING SYMPTOMS. Referrals: TRISH ROBERTSON MD [ACTIVE STAFF] - Follow up as needed Scribe Attestation: 06/07/18 00:22 I personally performed the services described in the documentation, reviewed and edited the documentation which was dictated to the scribe in my presence, and it accurately records my words and actions. (CLARISSA STALLINGS) Scribe Documentation - Scribe Written by Scribe:: Walter Miller, 06/07/2018 0002 acting as scribe for :: Ciara <COREY GONSALES - Last Filed: 06/06/18 23:49>
[2018-06-06 23:22] LABS: ABSOLUTE BASOPHILS # (AUTO) 0.1 10^3/uL (0.0-0.2); ABSOLUTE EOSINOPHILS # (AUTO) 0.3 10^3/uL (0.0-0.6); ABSOLUTE LYMPHOCYTES (AUTO) 3.1 10^3/uL (0.5-4.7); ABSOLUTE MONOCYTES (AUTO) 0.6 10^3/uL (0.1-1.4); ABSOLUTE NEUT (AUTO) 5.4 10^3/uL (1.7-8.2); BASOPHILS % (AUTO) 1.3 % (0-2); EOSINOPHILS % (AUTO) 3.3 % (0-6); HEMATOCRIT 39.6 % (36.0-47.0); HEMOGLOBIN 13.8 g/dL (12.0-15.5); LYMPHOCYTES % (AUTO) 32.2 % (13-45); MEAN CORPUSCULAR HEMOGLOBIN 30.3 pg (27.0-33.4); MEAN CORPUSCULAR HGB CONC 34.8 g/dL (32.0-36.0); MEAN CORPUSCULAR VOLUME 87 fl (80-97); MONOCYTES % (AUTO) 6.3 % (3-13); PLATELET COUNT 231 10^3/uL (150-450); RED BLOOD COUNT 4.54 10^6/uL (3.72-5.28); RED CELL DISTRIBUTION WIDTH 14.3 % (11.5-14.0); SEGMENTED NEUTROPHILS % (AUTO) 56.9 % (42-78); TOTAL CELLS COUNTED % (AUTO) 100 %; WHITE BLOOD COUNT 9.6 10^3/uL (4.0-10.5)
[2018-06-06 23:40] LABS: ALANINE AMINOTRANSFERASE 52 U/L (9-52); ALBUMIN 4.5 g/dL (3.5-5.0); ALKALINE PHOSPHATASE 89 U/L (38-126); ANION GAP 13 (5-19); ASPARTATE AMINO TRANSFERASE 40 U/L (14-36); BILIRUBIN,DIRECT 0.3 mg/dL (0.0-0.4); BILIRUBIN,TOTAL 0.4 mg/dL (0.2-1.3); BLOOD UREA NITROGEN 15 mg/dL (7-20); CALCIUM 9.5 mg/dL (8.4-10.2); CARBON DIOXIDE 30 mmol/L (22-30); CHLORIDE 99 mmol/L (98-107); CREATINE KINASE 143 U/L (30-135); GLUCOSE 97 mg/dL (75-110); POTASSIUM 3.7 mmol/L (3.6-5.0); SODIUM 142.4 mmol/L (137-145); TOTAL PROTEIN 7.4 g/dL (6.3-8.2)
[2018-06-06 23:52] LABS: NT PRO BNP 502 pg/mL (5-900)
[2018-06-06] MEDS ORDERED: ONDANSETRON 4 MG TAB.RAPDIS PO ONE (23:53)
[2018-06-06 23:57] LABS: TROPONIN I < 0.012 ng/mL
--- NOTE | 2018-06-07 00:03 | RADIOLOGY REPORT (SQ) ---
Clinical History : Wheezing, shortness of breath, peripheral edema , Exam : Portable AP view of the chest 06/06/2018 11:11 PM CDT Comparisons : none Findings : The lungs are clear without focal consolidation or pleural effusion. The heart is normal in size. The mediastinal contours are normal in appearance. There are vascular calcifications along the aortic arch. The thoracic spine is age appropriate. The shoulders are unremarkable. Limited evaluation of the upper abdomen demonstrates no gross abnormalities. Impression: No acute cardiopulmonary disease
[2018-06-07] MEDS ORDERED: IPRATROPIUM/ALBUTEROL 0.5-2.5 MG/3 ML AMPUL NEB ONE (00:05)
[2018-06-07] MEDS ORDERED: DIPHENHYDRAMINE HCL 50 MG/ML VIAL IV ONE (00:10)
[2018-06-07] MEDS ORDERED: METOCLOPRAMIDE HCL INJ/PF 10 MG/2 ML SDV IV ONE (00:17)
[2018-06-07] MEDS ORDERED: IBUPROFEN 800 MG TABLET PO ONE (00:50)
--- NOTE | 2018-06-07 02:50 | RADIOLOGY REPORT (SQ) ---
EXAM DESCRIPTION: CT CHEST ANGIOGRAPHY WITHOUT THEN WITH IV CONTRAST COMPLETED DATE/TME: 06/07/2018 01:25 CLINICAL HISTORY: 72 years, Female, Hypoxic, SOB, elevated d-dimer COMPARISON: None. TECHNIQUE: Axial CT images of the chest for obtained after the administration of IV contrast. MPR and MIP reconstructions were performed. DLP 1156 Images stored on PACS. All CT scanners at this facility use dose modulation, iterative reconstruction, and/or weight based dosing when appropriate to reduce radiation dose to as low as reasonably achievable (ALARA). [facility]: Dose Right [facility]: CareDose [facility]: Dose Right [facility]: Teradose 4D [facility]: [employer] [facility] LIMITATIONS: None. FINDINGS: Upper abdomen: Partially imaged. Fatty liver. Thoracic aorta: Unremarkable. Heart: No right atrial thrombus. RV/LV ratio: Within normal limits. Pulmonary arteries: Technical: Adequate opacification to the level of the segmental vessels. Pulmonary embolus: No low-density filling defect to suggest acute PE. Overall embolic burden: None. Mediastinum: No pathologic sized middle mediastinal lymphadenopathy. Tracheobronchial tree: Unremarkable. Lungs: Lobar consolidation: Negative. Pleural effusion: Negative. Pneumothorax: Negative. Other: Negative. Bones: Postsurgical changes involving the lumbar spine are partially visualized. IMPRESSION: No evidence of acute PE. Fatty liver. TECHNICAL DOCUMENTATION: Quality ID # [id number]: Final reports with documentation of one or more dose reduction techniques (e.g., Automated exposure control, adjustment of the mA and/or kV according to patient size, use of iterative reconstruction technique) 2010 [employer]- All Rights Reserved
[2018-06-07 03:10] VITALS: BP 121/70
[2018-06-07] MEDS ORDERED: ALBUTEROL SULFATE 0.083% NEB 2.5 MG/3 ML AMPUL NEB ONE (03:14)
[2018-06-07] MEDS ORDERED: ALBUTEROL SULFATE HFA (90 MCG/PUFF) 8 GM MDI (1 MDI/ER DISP) IH ONE (03:28)
--- NOTE | 2018-06-07 09:42 | EKG REPORT ---
SEVERITY:- ABNORMAL ECG - SINUS RHYTHM LAD, CONSIDER LEFT ANTERIOR FASCICULAR BLOCK : Confirmed by: Joaquina Aranda 07-Jun-2018 09:40:48
== END 2018-06-07 04:12 | disposition home or self-care (01) ==
LOC: ER 22:45
DX: J44.9 Chronic obstructive pulmonary disease, unspecified (principal); R11.2 Nausea with vomiting, unspecified; R60.0 Localized edema; R06.02 Shortness of breath; R06.09 Other forms of dyspnea; F17.210 Nicotine dependence, cigarettes, uncomplicated; I44.4 Left anterior fascicular block; M79.7 Fibromyalgia; Z79.891 Long term (current) use of opiate analgesic; Z79.899 Other long term (current) drug therapy; Z88.6 Allergy status to analgesic agent; Z88.5 Allergy status to narcotic agent; Z88.8 Allergy status to other drugs, medicaments and biological substances; Z88.2 Allergy status to sulfonamides; Z90.49 Acquired absence of other specified parts of digestive tract
CPT/HCPCS: 93005; 94640 ×2; 99285; 96374; 96375; 36415; 82550; 83735; 85025; 80053; 84484; 85379; 83880; 71045; 71275; 93010; A9270 ×4; J1200; J2765; J3490; J7620; S0119

== ENCOUNTER 2018-08-06 18:43 | Emergency (ER) | payer MEDICARE, OTHER ==
--- NOTE | 2018-08-06 19:55 | ER Document Report ---
ED Extremity Problem, Lower - General Chief Complaint: Knee Injury Stated Complaint: KNEE INJURY/PAIN Time Seen by Provider: 08/06/18 19:50 Mode of Arrival: Ambulatory Information source: Patient Notes: Chief complaint: Right knee pain History of complain:( obtained from----patient) 73 years old female presents today with right knee pain and right ankle pain since this afternoon. She was trying to get up from a seated position from a bed. Twisted ankle and the right knee got injured. She states the right knee got displaced posteriorly and she put it back in place prior to coming to the ED. She has a prosthetic knee on the right side. She is on Dilaudid pump, was taking the medications. No head injury. Onset: Sudden Duration: Just prior to arrival Severity: Moderate to severe Quality: Sharp Context: As described above Exacerbating factor and relieving factors: Any movements REVIEW OF SYSTEMS: CONSTITUTIONAL : Denies fever, chills, or sweats. Denies recent illness. EENT: Denies eye, ear, throat, or mouth pain or symptoms. Denies nasal or sinus congestion or discharge. Denies throat, tongue, or mouth swelling or difficulty swallowing. CARDIOVASCULAR: Denies chest pain. Denies palpitations or racing or irregular heart beat. Denies ankle edema. RESPIRATORY: Denies cough, cold, or chest congestion. Denies shortness of breath, difficulty breathing, or wheezing. GASTROINTESTINAL: Denies distention. Denies nausea, vomiting, or diarrhea. Denies blood in vomitus, stools, or per rectum. Denies black, tarry stools. Denies constipation. GENITOURINARY: Denies difficulty urinating, painful urination, burning, frequency, blood in urine, or discharge. FEMALE GENITOURINARY: Denies vaginal bleeding, heavy or abnormal periods, irregular periods. Denies vaginal discharge or odor. MUSCULOSKELETAL: Denies back or neck pain or stiffness. Denies joint pain or swelling. SKIN: Denies rash, lesions or sores. HEMATOLOGIC : Denies easy bruising or bleeding. LYMPHATIC: Denies swollen, enlarged glands. NEUROLOGICAL: Denies confusion or altered mental status. Denies passing out or loss of consciousness. Denies dizziness or lightheadedness. Denies headache. Denies weakness or paralysis or loss of use of either side. Denies problems with gait or speech. Denies sensory loss, numbness, or tingling. Denies seizures. PSYCHIATRIC: Denies anxiety or stress. Denies depression, suicidal ideation, or homicidal ideation. ALL OTHER SYSTEMS REVIEWED AND NEGATIVE. PHYSICAL EXAMINATION: GENERAL: Well-appearing, well-nourished and in moderate acute distress. Obese HEAD: Atraumatic, normocephalic. EYES: Pupils equal round and reactive to light, extraocular movements intact, conjunctiva are normal. ENT: Nares patent, oropharynx clear without exudates. Moist mucous membranes. NECK: Normal range of motion, supple without lymphadenopathy LUNGS: Breath sounds clear to auscultation bilaterally and equal. No wheezes rales or rhonchi. HEART: Regular rate and rhythm without murmurs ABDOMEN: Soft, nontender, nondistended abdomen. No guarding, no rebound. No masses appreciated. Examination of genitals-deferred Musculoskeletal: Right knee-no discoloration or swelling, in an extended position, stiff and diffusely tender. Right ankle-no deformity mild tenderness on palpation able to plantarflex and dorsiflex. NEUROLOGICAL: Cranial nerves grossly intact. Normal speech, normal gait. Normal sensory, motor exams PSYCH: Normal mood, normal affect. SKIN: Warm, Dry, normal turgor, no rashes or lesions noted. Dictation was performed using [employer] voice recognition software TRAVEL OUTSIDE OF THE [place] IN LAST 30 DAYS: No - HPI Notes: Dictated - Related Data Allergies/Adverse Reactions: acetaminophen [From Percocet] Allergy (Verified 01/14/18 11:13) codeine [Codeine] Allergy (Verified 01/14/18 11:13) Nausea dexamethasone [Dexamethasone] Allergy (Verified 01/14/18 11:13) "crazy" indomethacin [From Indocin] Allergy (Verified 01/14/18 11:13) ecchymosis indomethacin sodium [From Indocin] Allergy (Verified 01/14/18 11:13) methadone [Methadone] Allergy (Verified 01/14/18 11:13) "crazy" oxycodone HCl [From Percocet] Allergy (Verified 01/14/18 11:13) Nausea pregabalin [From Lyrica] Allergy (Verified 01/14/18 11:13) dizzy prochlorperazine edisylate [From Compazine] Allergy (Verified 01/14/18 11:13) muscle spasms prochlorperazine maleate [From Compazine] Allergy (Verified 01/14/18 11:13) muscle spasms Sulfa (Sulfonamide Antibiotics) Allergy (Verified 01/14/18 11:13) Nausea doxycycline Adverse Reaction (Verified 01/14/18 11:13) Nausea Past Medical History - Social History Smoking Status: Current Every Day Smoker Smoking Education Provided: No Frequency of alcohol use: Rare Drug Abuse: None Lives with: Spouse/Significant other Family History: Reviewed & Not Pertinent Patient has suicidal ideation: No Patient has homicidal ideation: No - Past Medical History Cardiac Medical History: Denies: Hx Coronary Artery Disease, Hx Heart Attack, Hx Hypertension Pulmonary Medical History: Denies: Hx Asthma, Hx Bronchitis, Hx COPD, Hx Pneumonia Neurological Medical History: Denies: Hx Cerebrovascular Accident, Hx Seizures Endocrine Medical History: Reports: Hx Hypothyroidism. Denies: Hx Graves' Disease, Hx Hyperthyroidism Renal/ Medical History: Denies: Hx Peritoneal Dialysis GI Medical History: Reports: Hx Hiatal Hernia. Denies: Hx Hepatitis, Hx Ulcer Musculoskeletal Medical History: Reports Hx Arthritis - RIGHT LEG, Reports Hx Fibromyalgia, Denies Hx Multiple Sclerosis, Denies Hx Muscular Dystrophy Psychiatric Medical History: Denies: Hx Dementia Traumatic Medical History: Denies: Hx Fractures Infectious Medical History: Denies: Hx Hepatitis Past Surgical History: Reports: Hx Appendectomy, Hx Cholecystectomy, Hx Herniorrhaphy, Hx Hysterectomy, Hx Neurologic Surgery - Lumbar fusion, Hx Orthopedic Surgery - Left hip cyst removed, Right knee replacement, Hx Tonsillectomy, Hx Vascular Surgery - Right lower extremity fasciotomy because of post surgical complications. Denies: Hx Bowel Surgery, Hx Section, Hx Coronary Artery Bypass Graft, Hx Gastric Bypass Surgery, Hx Mastectomy, Hx Open Heart Surgery, Hx Pacemaker, Hx Tubal Ligation - Immunizations Hx Diphtheria, Pertussis, Tetanus Vaccination: Yes Review of Systems - Review of Systems Notes: Dictated Physical Exam - Vital signs Vitals: Temp Pulse Resp BP Pulse Ox 98.1 F 58 L 18 121/77 94 08/06/18 19:19 08/06/18 19:19 08/06/18 19:19 08/06/18 19:19 08/06/18 19:19 - Notes Notes: Dictated Course - Vital Signs Vital signs: Temp Pulse Resp BP Pulse Ox 98.1 F 58 L 18 121/77 94 08/06/18 19:19 08/06/18 19:19 08/06/18 19:19 08/06/18 19:19 08/06/18 19:19 - Diagnostic Test Radiology reviewed: Image reviewed - X-ray of the 1.knee-no obvious displacement no fracture of the bones as well as prostheses. 2. X-ray of the ankle shows no obvious fractures. Discharge - Discharge Clinical Impression: Knee injury Qualifiers: Encounter type: initial encounter Laterality: right Qualified Code(s): S89.91XA - Unspecified injury of right lower leg, initial encounter Ankle sprain Qualifiers: Encounter type: initial encounter Involved ligament of ankle: other ligament Laterality: right Qualified Code(s): S93.491A - Sprain of other ligament of right ankle, initial encounter Condition: Fair Disposition: HOME, SELF-CARE Instructions: Use of Crutches ([facility]), Knee Immobilizing Splint ([facility]) Referrals: RIMMA ECHAVARRIA MD [Primary Care Provider] - Follow up as needed
--- NOTE | 2018-08-06 20:36 | RADIOLOGY REPORT (SQ) ---
EXAM DESCRIPTION: ANKLE RIGHT COMPLETE COMPLETED DATE/TIME: 08/06/2018 8:15 pm REASON FOR STUDY: Fall.injury/pain COMPARISON: None. EXAM PARAMETERS: NUMBER OF VIEWS: Three views. TECHNIQUE: AP, lateral and oblique radiographic images acquired of the right ankle. LIMITATIONS: None. FINDINGS: MINERALIZATION: Normal. BONES: No acute fracture or dislocation. No worrisome bone lesions. JOINTS: No effusion. SOFT TISSUES: No significant soft tissue swelling. No radiopaque foreign body. OTHER: No other significant finding. IMPRESSION: NO FRACTURE. TECHNICAL DOCUMENTATION: JOB ID: [id number] 2010 [employer]- All Rights Reserved Reading location - IP/workstation name: [email or web address]
--- NOTE | 2018-08-06 20:38 | RADIOLOGY REPORT (SQ) ---
EXAM DESCRIPTION: KNEE RIGHT 4 VIEWS COMPLETED DATE/TIME: 08/06/2018 8:15 pm REASON FOR STUDY: Fall.injury/pain COMPARISON: None. EXAM PARAMETERS: NUMBER OF VIEWS: Four views. TECHNIQUE: AP, lateral and both oblique radiographic images acquired of the right knee. LIMITATIONS: None. FINDINGS: MINERALIZATION: Normal. BONES: No acute fracture or dislocation. Right total knee arthroplasty hardware appears stable. . JOINTS: No effusion. SOFT TISSUES: No significant soft tissue swelling. No radiopaque foreign body. OTHER: Popliteal stent. IMPRESSION: NO FRACTURE. TECHNICAL DOCUMENTATION: JOB ID: [id number] 2010 [employer]- All Rights Reserved Reading location - IP/workstation name: Company
[2018-08-06 21:21] VITALS: BP 125/70
== END 2018-08-06 21:08 | disposition home or self-care (01) ==
LOC: ER 18:43
DX: S89.91XA Unspecified injury of right lower leg, initial encounter (principal); S93.491A Sprain of other ligament of right ankle, initial encounter; X50.1XXA Overexertion from prolonged static or awkward postures, initial encounter; Y93.9 Activity, unspecified; Y92.9 Unspecified place or not applicable; F17.210 Nicotine dependence, cigarettes, uncomplicated
CPT/HCPCS: 99283; 73610; 73564; L1830

== ENCOUNTER → 2018-09-15 | Outpatient (CLI) | payer MEDICARE, OTHER ==
--- NOTE | 2018-09-15 14:03 | RADIOLOGY REPORT (SQ) ---
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 FINDINGS: MINERALIZATION: Normal. SEGMENTATION: Normal. No transitional anatomy. ALIGNMENT: Normal. FLEXION/EXTENSION: No instability. VERTEBRAE: Maintained height. No fracture or worrisome bone lesion. DISCS: Disc spacer is identified at the L4-L5 level. There is decreased in the remaining disc space heights. Anterior osteophytic lipping is identified. POSTERIOR ELEMENTS: Post laminectomy changes are identified. HARDWARE: Posterior orthopedic rods transfixed by pedicular screws is identified extending from the L 2 to the L5 level. OTHER: No other significant finding. IMPRESSION: Degenerative and postsurgical changes as noted above. NO INSTABILITY ON FLEXION/EXTENSION. TECHNICAL DOCUMENTATION: JOB ID: [id number]- All Rights Reserved Reading location - IP/workstation name: [email or web address]
== END ==
LOC: RAD 12:27
PROVIDERS: ATTEND Pain Medicine Interventional Pain Medicine
DX: M47.816 Spondylosis without myelopathy or radiculopathy, lumbar region (principal)
CPT/HCPCS: 72120

== ENCOUNTER → 2019-12-10 | Outpatient (CLI) | payer MEDICARE, OTHER ==
--- NOTE | 2019-12-10 16:44 | RADIOLOGY REPORT (SQ) ---
EXAM DESCRIPTION: MRI CERVICAL SPINE WITHOUT COMPLETED DATE/TIME: 12/10/2019 12:12 pm REASON FOR STUDY: PAIN IN RIGHT ARM (M79.601), PAIN IN LEFT ARM (M79.602) M79.601 PAIN IN RIGHT ARM M79.602 PAIN IN LEFT ARM COMPARISON: None. TECHNIQUE: Sagittal and Axial imaging includes T1, T2, STIR and gradient echo sequences. LIMITATIONS: None. FINDINGS: ALIGNMENT: Normal. VERTEBRAE: Intact. BONE MARROW: Normal. No marrow replacement or reactive changes. DISCS: Normal. No significant abnormal signal or loss of height. HARDWARE: None in the spine. CORD AND BASE OF BRAIN: Normal in size and signal intensity. SOFT TISSUES: No soft tissue masses. C1-C2: No significant spinal stenosis. C2-C3: No significant spinal stenosis or exit foraminal stenosis. C3-C4: No significant spinal stenosis or exit foraminal stenosis. C4-C5: No significant spinal stenosis or exit foraminal stenosis. C5-C6: No significant spinal stenosis or exit foraminal stenosis. C6-C7: No significant spinal stenosis or exit foraminal stenosis. C7-T1: Tiny central disc bulge. No significant spinal stenosis or exit foraminal stenosis. UPPER THORACIC: Incompletely imaged. No significant spinal stenosis or exit foraminal stenosis. OTHER: No other significant finding. IMPRESSION: TINY CENTRAL DISC BULGE AT C7-T1. OTHERWISE UNREMARKABLE MRI CERVICAL SPINE. TECHNICAL DOCUMENTATION: JOB ID: [id number]- All Rights Reserved Reading location - IP/workstation name: [email or web address]
== END ==
LOC: RAD 11:26
PROVIDERS: ATTEND Surgery
DX: M50.83 Other cervical disc disorders, cervicothoracic region (principal); M79.601 Pain in right arm; M79.602 Pain in left arm
CPT/HCPCS: 72141

== ENCOUNTER → 2020-06-27 | Outpatient (CLI) | payer MEDICARE, OTHER ==
--- NOTE | 2020-06-28 12:24 | RADIOLOGY REPORT (SQ) ---
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 TECHNIQUE: Axial images acquired through the lumbar spine without intravenous contrast. Images revi ewed with lung, soft tissue and bone windows. Reconstructed coronal and sagittal MPR images reviewed . All images stored on PACS. All CT scanners at this facility use dose modulation, iterative reconstruction, and/or weight based d osing when appropriate to reduce radiation dose to as low as reasonably achievable (ALARA). [facility]: Dose Right [facility]: CareDose [facility]: Dose Right [facility]: Teradose 4D [facility]: [employer] RADIATION DOSE: CT Rad equipment meets quality standard of care and radiation dose reduction techniq ues were employed. CTDIvol: 37.8 mGy. DLP: 1347 mGy-cm. mGy. LIMITATIONS: Metallic artifact. FINDINGS: SEGMENTATION: Normal. No transitional anatomy. ALIGNMENT: Normal. VERTEBRAL BODIES: No fractures. No dislocation. No acute findings. DISCS: Disc space narrowing throughout. Prominent disc space narrowing with endplate sclerosis and v acuum change at L1-L2. L1-L2: Anterior and posterior osteophytes. Mild facet arthropathy. L2-L3: Limited by metallic artifact. Previous laminectomy. L3-L4: Limited by metallic artifact. Previous laminectomy. L4-L5: Limited by metallic artifact. Posterior fusion. Facet arthropathy. L5-S1: Posterior fusion. Facet arthropathy. PEDICLES, TRANSVERSE PROCESSES: No fractures. No dislocation. No acute findings. FACETS, POSTERIOR ELEMENTS: No fractures. No dislocation. HARDWARE: Stimulator electrodes entering the mid lumbar spine and extending cephalad to the thoracic spine. Posterior hardware at L2, L 3, L4, and L5. Disc spacer at L4-L5. VISUALIZED RIBS: No fractures. SOFT TISSUES: No significant or acute finding in adjacent soft tissues. OTHER: No other significant finding. IMPRESSION: STUDY LIMITED BY METALLIC ARTIFACT AND LACK OF INTRATHECAL CONTRAST. MULTILEVEL DEGENER ATIVE DISC DISEASE, FACET ARTHROPATHY, AND SURGICAL CHANGES WITH HARDWARE. NO ACUTE BONY FINDINGS. TECHNICAL DOCUMENTATION: JOB ID: [id number] Quality ID # [id number]: Final reports with documentation of one or more dose reduction techniques (e.g., Au tomated exposure control, adjustment of the mA and/or kV according to patient size, use of iterative reconstruction technique) 2010 [employer]- All Rights Reserved Reading location - IP/workstation name: [email or web address]
== END ==
LOC: RAD 15:32
PROVIDERS: ATTEND Pain Medicine Interventional Pain Medicine
DX: M96.1 Postlaminectomy syndrome, not elsewhere classified (principal); M51.36 Other intervertebral disc degeneration, lumbar region
CPT/HCPCS: 72131